=== PATIENT | female | born 1955 | race Caucasian/White ===

== ENCOUNTER → 2025-02-18 08:49 | Outpatient (REF) | payer MEDICARE, OTHER, SELFPAY ==
[2025-02-18 12:00] LABS: TSH 1.76 uIU/ml (0.47-4.68)
== END ==
LOC: RAD 08:49
PROVIDERS: ATTENDING PHYSICIAN Internal Medicine Endocrinology, Diabetes & Metabolism; FAMILY PHYSICIAN Internal Medicine Critical Care Medicine; OTHER PHYSICIAN Nurse Practitioner Family
DX: E04.2 Nontoxic multinodular goiter (principal)
CPT/HCPCS: 36415; 76536; 84443